=== PATIENT | male | born 1995 | race Caucasian/White ===

== ENCOUNTER 2020-05-22 15:10 | Inpatient (IN) | payer OTHER ==
[~2020-05-22] VITALS: Ht 185.4 cm; Wt 90.9 kg
[2020-05-22 16:00] VITALS: BP 114/71
[2020-05-22 16:05] VITALS: BP 114/71
--- NOTE | 2020-05-22 16:05 | NUR ---
A 24, admitted to , under the services of KAELYN Tee DO with a diagnosis of OPIATE ABUSE AND WITHDRAWAL. Chief complaint is OPIATE WITHDRAWAL. Patient arrived via ambulatory from [place]. Monitor applied. Initial assessment completed. Vital signs taken and recorded. KAELYN TEE DO notified of admission to the unit. Orders received. See assessment for past medical history, medications and allergies. Patient and/or family oriented to unit. [facility] visitation policy reviewed. Clothing/patient valuable form completed. SOY KRISHNAN
--- NOTE | 2020-05-22 16:14 | NUR ---
PATIENT MEETS [facility]. CINA=15. PATIENT IS GOING TO FOLLOW UP WITH [facility] FOR RESIDENTIAL TREATMENT. PATIENT IS SCHEDULED TO GO MONDAY, May POST DISCHARGE. [facility] REPORTED THAT THEY WILL PROVIDE TRANSPORTATION FOR PATIENT. ALBERTO DUMONT B.A. CATCH BASIN CLEANER
[2020-05-22 17:06] LABS: BILIRUBIN NEGATIVE (NEGATIVE); BLOOD NEGATIVE (NEGATIVE); CLARITY SL CLOUDY (CLEAR); COLOR YELLOW (YELLOW); GLUCOSE NEGATIVE (NEGATIVE); KETONE NEGATIVE (NEGATIVE); LEUKO ESTERASE NEGATIVE (NEGATIVE); NITRITE NEGATIVE (NEGATIVE); UROBILINOGEN 0.2 E.U./dl (0.2-1.0)
[2020-05-22 17:12] LABS: BACTERIA TRACE; EPITHELIAL CELLS 0-2; MUCOUS TRACE; RBC 0-2 rbc/hpf (0-2); WBC 0-2 wbc/hpf (0-5)
--- NOTE | 2020-05-22 17:15 | NUR ---
ZOFRAN GIVEN FOR C/O NAUSEA. WILL MONITOR FOR EFFECTIVENESS. CALL LIGHT IN REACH.
[2020-05-22 17:18] LABS: BASO % 0.3 % (0.0-1.0); EOS # 0.1 10*3/uL (0.0-0.4); EOS % 0.5 % (1.0-4.0); HEMATOCRIT 46.2 % (42.0-52.0); LYMPH # 2.6 10*3/uL (1.3-4.4); LYMPH % 25.4 % (27.0-41.0); MEAN CELL VOLUME 84.6 fl (80.0-94.0); MEAN CORPUSCULAR HGB CONC 33.1 g/dl (33.0-37.0); MEAN PLATELET VOLUME 10.2 fl (9.6-12.3); MONO # 0.5 10*3/uL (0.1-1.0); NEUT # 7.1 10*3/uL (2.3-7.9); NEUT % 68.4 % (47.0-73.0); PLATELET COUNT AUTOMATED 184 10*3/uL (130-400); RED BLOOD COUNT 5.46 10*6/uL (4.50-5.90); RED CELL DISTRI WIDTH 13.1 % (0-14.5); WHITE BLOOD COUNT 10.4 10*3/uL (4.8-10.8)
--- NOTE | 2020-05-22 17:21 | NUR ---
DR SIDHU NOTIFIED THAT PT WOULD LIKE TO START SUBUTEX TAPER AT 2330 TONIGHT. SHE STATES THAT IS OKAY.
[2020-05-22 17:32] LABS: ALBUMIN 3.9 gm/dl (3.1-4.5); ALKALINE PHOSPHATASE 123 U/L (45-117); BUN 10 mg/dl (7-24); CHLORIDE 101 mmol/L (98-107); POTASSIUM 4.1 mmol/L (3.5-5.1); SGOT/AST 26 IU/L (3-35); SGPT/ALT 43 U/L (12-78); SODIUM 136 mmol/L (136-145)
[2020-05-22 17:33] LABS: ETHYL ALCOHOL < 3.0 mg/dl (<3)
[2020-05-22 18:13] LABS: URINE AMPHETAMINES < 1000 (1000ng/ml); URINE BARBITURATES < 200 (200ng/ml); URINE BENZODIAZEPINES < 200 (200ng/ml); URINE CANNABINOIDS (THC) < 50 (50ng/ml); URINE COCAINE > 300 (300ng/ml); URINE METHADONE < 300 (300ng/ml); URINE OPIATES > 300 (300ng/ml)
--- NOTE | 2020-05-22 18:15 | NUR ---
PT STATES THAT ZOFRAN IS EFFECTIVE.
[2020-05-22 18:17] LABS: URINE PHENCYCLIDINE < 25 (25ng/ml)
[2020-05-22 20:00] VITALS: BP 123/73
--- NOTE | 2020-05-22 21:00 | NUR ---
DR. HUGHES CALLED AT THIS TIME AT PATIENT REQUEST TO SEE IF HE COULD BE TAKEN OFF THE MONITOR FOR A SHOWER. OKAY FOR PATIENT TO SHOWER AND THEN BE PLACED BACK ONTO THE MONITOR. PATIENT MADE AWARE AND IS PREPARING FOR SHOWER, PATIENT AIDE MADE AWARE.
--- NOTE | 2020-05-22 21:30 | NUR ---
PATIENT PLACED BACK ON PUBLIC HEALTH REPRESENTATIVE AT THIS TIME AFTER SHOWERING. ASSESSMENT COMPLETED WITHOUT INCIDENT AT THIS TIME. DENIES ANY WITHDRAWAL SYMPTOMS AT THIS TIME, PATIENT MADE AWARE OF MEDICATIONS AVAILABLE IF HE WOULD NEED ANYTHING. CALL LIGHT WITHIN REACH. WILL CONTINUE TO MONITOR.
--- NOTE | 2020-05-22 23:05 | NUR ---
PATIENT REFUSING SUBUTEX AT THIS TIME. STATED "SINCE I JUST USED TODAY I DON'T WANT TO TAKE THE SUBUTEX AND THROW MYSELF INTO WITHDRAWAL" A&O X3 CALL LIGHT WITHIN REACH, WILL CONTINUE TO MONITOR.
[2020-05-23] VITALS: BP 128/72
--- NOTE | 2020-05-23 00:20 | NUR ---
PATIENT RESTING IN BED AT THIS TIME IN A PRONE POSITION, WITH EYES CLOSED. PATIENT DENIES ANY NEEDS AT THIS TIME. CALL LIGHT WITHIN REACH. WILL CONTINUE TO MONITOR.
--- NOTE | 2020-05-23 04:20 | NUR ---
PATIENT REMAINS PRONE IN BED, NO SIGNS OR SYMPTOMS OF DISTRESS NOTED. CALL LIGHT WITHIN REACH WILL CONTINUE TO MONITOR.
--- NOTE | 2020-05-23 05:45 | NUR ---
DR. HUGHES NOTIFIED AT THIS TIME THAT PATIENT HAS REMOVED MONITOR AND ELECTRODES AND DOES NOT WISH TO HAVE IT PLACED BACK ON HE STATED "IT WAS STRANGLING ME AND THEY SAID IT WAS COMING OFF TODAY ANYWAY." NO NEW ORDERS AT THIS TIME. WATER CONSERVATION SPECIALIST AWARE.
[2020-05-23 08:00] VITALS: BP 110/62
--- NOTE | 2020-05-23 08:00 | NUR ---
AM ASSESSMENT COMPLETE, PT SITTING UP EATING BREAKFAST. DENIES PAIN, N/V/D AT THIS TIME. ENCOURAGED TO USE CALL LIGHT, BED IN LOWEST POSITION, CALL LIGHT WITHIN REACH.
--- NOTE | 2020-05-23 11:18 | NUR ---
Shift chart check completed.
[2020-05-23 12:00] VITALS: BP 94/54
--- NOTE | 2020-05-23 15:43 | NUR ---
IBUPROFEN ADMINISTERED REQUESTED PER PT FOR 10 BACK PAIN, SEE EMAR.
[2020-05-23 16:00] VITALS: BP 100/56
[2020-05-23 20:00] VITALS: BP 115/64
--- NOTE | 2020-05-23 20:30 | NUR ---
PATIENT WANTING PATCH CHANGED EARLY D/T WANTING TO SMOKE. SPOKE WITH PATIENT ABOUT HOW MUCH HE SMOKES AND HE STATED ON A NORMAL DAY AROUND [address] DONNELLY NOTIFIED THAT PATIENT IS ON THE LOWEST DOSE PATCH. NEW ORDER FOR PATCH TO BE CHANGED TO 7MG.
--- NOTE | 2020-05-23 21:45 | NUR ---
PATIENT REFUSES TO WEAR MONITOR.
[2020-05-24] VITALS: BP 121/73
--- NOTE | 2020-05-24 00:09 | NUR ---
PATIENT MEDICATED WITH MAALOX FOR COMPLAINTS OF HEARTBURN. WILL CONTINUE TO MONITOR. CALL LIGHT IN REACH.
[2020-05-24 08:00] VITALS: BP 118/68
--- NOTE | 2020-05-24 08:00 | NUR ---
PT RESTING IN BED. RESP-EASY AND REGULAR. TOLERATED ROUTINE SUBUTEX FOR WITHDRAWAL. REFUSED NEED FOR ANY OTHER MEDICATIONS. CALL LIGHT IN REACH. SEE SHIFT ASSESSMENT.
--- NOTE | 2020-05-24 15:50 | NUR ---
PT TOLERATED ROUTINE MED WITH NO PROBLEM. NO C/O AT THIS TIME. CALL LIGHT IN REACH. SEE SHIFT ASSESSMENT.
[2020-05-24 16:00] VITALS: BP 110/53
[2020-05-24 20:00] VITALS: BP 124/71
[2020-05-25] VITALS: BP 114/62
[2020-05-25 08:00] VITALS: BP 120/63
--- NOTE | 2020-05-25 08:15 | NUR ---
PT SITTING UP IN BED. RESP-EASY AND REGULAR. DENIES NEED FOR ANY PRN MEDICATIONS. TOLERATED ROUTINE MEDS WITH NO PROBLEM. CALL LIGHT IN REACH. SEE SHIFT ASSESSMENT.
--- NOTE | 2020-05-25 11:19 | NUR ---
TALKED WITH DR. RANKIN AWARE PT DON'T WANT LAST DOSE OF SUBUTEX BECAUSE HE WON'T HAVE A RIDE TO [facility] IF HE WAITS FOR IT. HE WILL D/C HIM.
--- NOTE | 2020-05-25 12:20 | NUR ---
Discharge instructions reviewed with patient/family. Patient receptive and verbalizes understanding. Follow-up care arranged. Written instructions given to patient/family. PT AMBULATORY OFF FLOOR FOR DISCHARGE. RIDE TO [facility] IS MEETING HIM DOWNSTAIRS. GURMEET AGUILAR
== END 2020-05-25 12:20 | disposition home or self-care (01) | DRG 773 ==
LOC: 5E 15:10
PROVIDERS: Hospitalist; ADMIT Emergency Medicine
DX: F11.23 Opioid dependence with withdrawal (principal); F14.10 Cocaine abuse, uncomplicated; B19.20 Unspecified viral hepatitis C without hepatic coma; F12.10 Cannabis abuse, uncomplicated; K29.70 Gastritis, unspecified, without bleeding; F17.210 Nicotine dependence, cigarettes, uncomplicated; Z82.49 Family history of ischemic heart disease and other diseases of the circulatory system